=== PATIENT | male | born 1955 | race Caucasian/White ===

== ENCOUNTER 2022-05-27 07:40 | Emergency (ER) | payer BC ==
[~2022-05-27] VITALS: Ht 165.1 cm; Wt 61.2 kg
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
[2022-05-27] MEDS ORDERED: HYDR-4303 PO (08:45)
--- NOTE | 2022-05-27 08:53 | NUR ---
Patient discharged to home in stable condition. Written and verbal after care instructions given. Patient verbalizes understanding of instruction.
[2022-05-27] MEDS ORDERED: HYDROCODONE/APAP 5/325MG TABLET ONE (08:58)
[2022-05-27] MEDS ORDERED: HYDROCODONE/APAP 5/325MG TABLET PO ONE (09:00)
[2022-05-27 09:07] VITALS: BP 137/77
== END 2022-05-27 09:08 | disposition home or self-care (01) ==
LOC: ER 08:02
DX: S13.4XXA Sprain of ligaments of cervical spine, initial encounter (principal); S00.31XA Abrasion of nose, initial encounter; W01.10XA Fall on same level from slipping, tripping and stumbling with subsequent striking against unspecified object, initial encounter; Y93.89 Activity, other specified; Y92.89 Other specified places as the place of occurrence of the external cause; Y99.8 Other external cause status
CPT/HCPCS: 99284; 72125; 70450; L0172